=== PATIENT | female | born 1945 | race Two or more races ===

== ENCOUNTER 2025-05-30 19:13 | Inpatient (IN) | payer MEDICARE ==
[~2025-05-30] VITALS: Ht 162.6 cm; Wt 61.2 kg
[2025-05-30 21:31] LABS: PLATELET COUNT (AUTO) 232 K/uL (150-450); RED BLOOD CELL COUNT(AUTO) 3.97 MIL/uL (4.0-5.2); RED CELL DISTRIBUTION WIDTH 14.4 % (11.5-15.0); WHITE BLOOD COUNT (AUTO) 6.9 K/uL (4.3-11.0)
[2025-05-30] MEDS ORDERED: LORAZEPAM 0.5 MG TABLET ONE (21:40)
[2025-05-30 21:41] LABS: CALCIUM, SERUM 8.8 mg/dL (8.5-10.1); CREATININE 0.9 mg/dL (0.6-1.3); SODIUM SERUM 137 mmol/L (136-145); UREA NITROGEN, BLOOD 6 mg/dL (7-18)
[2025-05-30] MEDS: LORAZEPAM 1 MG TABLET PO ONE (21:41)
[2025-05-30 21:46] LABS: ASPARTATE AMINOTRANSFERASE 17 U/L (15-37); TOTAL PROTEIN, SERUM 7.1 g/dL (6.4-8.2)
[2025-05-30 23:49] LABS: APPEARANCE,URINE CLEAR (CLEAR); BLOOD, URINE NEGATIVE Ery/uL (NEGATIVE); LEUKOCYTE ESTERASE ,URINE 1+ (NEGATIVE); NITRITE, URINE NEGATIVE (NEGATIVE); UGLUCOSE NEGATIVE (NEGATIVE)
[2025-05-31 00:07] LABS: AMPHETAMINE, URINE NEGATIVE (NEGATIVE); BARBITURATE, URINE NEGATIVE (NEGATIVE); BENZODIAZEPINE, URINE NEGATIVE (NEGATIVE); CANNABINOID, URINE NEGATIVE (NEGATIVE); COCCAINE, URINE NEGATIVE (NEGATIVE); OPIATE, URINE NEGATIVE (NEGATIVE)
[2025-05-31 00:12] LABS: ADD URINE CULTURE YES; SQUAMOUS EPITHELIAL CELL,UR 0-2 /HPF (None Seen)
[2025-05-31] MEDS ORDERED: CARI1.5C PO (00:58)
[2025-05-31] MEDS ORDERED: VENL150C58 PO (00:58)
[2025-05-31] MEDS ORDERED: BUPR-54 PO (00:58)
[2025-05-31] MEDS ORDERED: LORA-259 PO (00:58)
[2025-05-31] MEDS ORDERED: CLON0.5T4 PO (00:58)
[2025-05-31] MEDS ORDERED: ASPI-1169 PO (00:58)
[2025-05-31] MEDS ORDERED: ATOR40TA PO (00:58)
[2025-05-31] MEDS ORDERED: TRAZ-182 PO (00:58)
[2025-05-31] MEDS ORDERED: CYAN100T44 PO (00:58)
[2025-05-31] MEDS: BLOOD SUGAR DIAGNOSTIC 1 EACH STRIP IN ONE (02:31)
[2025-05-31] MEDS: QUETIAPINE FUMARATE 25 MG TABLET PO PRN (03:07)
[2025-05-31 05:26] VITALS: BP 140/82; TEMP 97.5; O2SAT 96
[2025-05-31 08:00] VITALS: BP 131/68; TEMP 98; O2SAT 100
[2025-05-31] MEDS: ASPIRIN 81 MG TAB.CHEW PO SCH (08:24)
[2025-05-31] MEDS: CYANOCOBALAMIN 100 MCG TABLET PO SCH (08:24)
[2025-05-31 16:00] VITALS: BP 164/92; TEMP 98.6; O2SAT 95
[2025-05-31] MEDS: ATORVASTATIN 40 MG TABLET PO SCH (17:48)
[2025-05-31] MEDS: ZOLPIDEM TARTRATE 5 MG TABLET PO PRN (21:08)
[2025-06-01 07:53] LABS: CREATININE 0.9 mg/dL (0.6-1.3)
[2025-06-01 07:55] LABS: ASPARTATE AMINOTRANSFERASE 20.0 U/L (15-37); CALCIUM, SERUM 9.0 mg/dL (8.5-10.1); CREATININE 0.9 mg/dL (0.6-1.3); SODIUM SERUM 142.0 mmol/L (136-145); TOTAL PROTEIN, SERUM 7.0 g/dL (6.4-8.2); UREA NITROGEN, BLOOD 8.0 mg/dL (7-18)
[2025-06-01 07:56] LABS: LDL 42 mg/dL (0-99)
[2025-06-01 08:00] VITALS: BP 154/90; TEMP 97.8; O2SAT 97
[2025-06-01] MEDS: VENLAFAXINE XR 150 MG CAP.SR.24H PO SCH (08:16)
[2025-06-01 16:00] VITALS: BP 131/98; TEMP 97.9; O2SAT 96
[2025-06-01] MEDS: QUETIAPINE FUMARATE 25 MG TABLET PO SCH (21:33)
[2025-06-02 08:00] VITALS: BP 155/82; TEMP 98.1; O2SAT 98
[2025-06-02 16:00] VITALS: BP 157/74; TEMP 98.6; O2SAT 99
[2025-06-02 20:13] VITALS: BP 160/84; TEMP 98; O2SAT 99
[2025-06-03] MEDS ORDERED: ACETAMINOPHEN 650 MG/20.3 ML UDC NG PRN (06:00)
[2025-06-03] MEDS ORDERED: ACETAMINOPHEN 650 MG/20.3 ML UDC PO PRN (06:00)
[2025-06-03] MEDS: ACETAMINOPHEN 325 MG TABLET PO PRN (06:34)
[2025-06-03 07:44] VITALS: BP 165/79; TEMP 98.7; O2SAT 98
[2025-06-03] MEDS: AMLODIPINE BESYLATE 5 MG TABLET PO SCH (08:46)
[2025-06-03 13:18] VITALS: BP 144/75
[2025-06-03 15:44] VITALS: BP 163/86; TEMP 97.8; O2SAT 97
[2025-06-03 20:58] VITALS: BP 131/70; TEMP 98.4; O2SAT 98
[2025-06-03] MEDS: ZOLPIDEM TARTRATE 5 MG TABLET PO PRN (23:02)
[2025-06-04 07:42] VITALS: BP 160/96; TEMP 97.8; O2SAT 98
[2025-06-04 14:55] VITALS: BP 143/69; TEMP 98.1; O2SAT 97
[2025-06-04] MEDS: QUETIAPINE FUMARATE 25 MG TABLET PO PRN (15:59)
[2025-06-04 19:33] VITALS: BP 123/60; TEMP 98; O2SAT 97
[2025-06-04] MEDS: QUETIAPINE FUMARATE 25 MG TABLET PO SCH (20:42)
[2025-06-05 07:31] LABS: APPEARANCE,URINE CLEAR (CLEAR); BLOOD, URINE NEGATIVE Ery/uL (NEGATIVE); LEUKOCYTE ESTERASE ,URINE 1+ (NEGATIVE); NITRITE, URINE NEGATIVE (NEGATIVE); UGLUCOSE NEGATIVE (NEGATIVE)
[2025-06-05 07:32] LABS: ADD URINE CULTURE YES; SQUAMOUS EPITHELIAL CELL,UR Rare /HPF (None Seen)
[2025-06-05 08:00] VITALS: BP 156/79; TEMP 97.9; O2SAT 99
[2025-06-05] MEDS: QUETIAPINE FUMARATE 25 MG TABLET PO SCH (08:37)
[2025-06-05] MEDS ORDERED: PHENAZOPYRIDINE HCL 200 MG TABLET PO PRN (13:30)
[2025-06-05] MEDS: PHENAZOPYRIDINE HCL 200 MG TABLET PO SCH (14:20)
[2025-06-05 16:00] VITALS: BP 130/62; TEMP 97.7; O2SAT 96
[2025-06-05 20:22] VITALS: BP 140/68; TEMP 98; O2SAT 97
[2025-06-05] MEDS: SULFAMETH/TRIMETH 800/160 MG 1 UDTAB TABLET PO SCH (20:43)
[2025-06-06 07:51] VITALS: BP 150/70; TEMP 97.7; O2SAT 98
[2025-06-06 16:00] VITALS: BP 149/54; TEMP 97.7; O2SAT 98
[2025-06-06 19:53] VITALS: BP 154/96; TEMP 97.9; O2SAT 98
[2025-06-06] MEDS: QUETIAPINE FUMARATE 25 MG TABLET PO SCH (20:12)
[2025-06-07 08:00] VITALS: BP 157/85; TEMP 97.8; O2SAT 97
[2025-06-07] MEDS: MAG HYDROX/AL HYDROX/SIMETH 30 ML UDC PO PRN (15:38)
[2025-06-07 16:00] VITALS: BP 131/59; TEMP 98.2; O2SAT 95
[2025-06-07 20:00] VITALS: BP 131/92; TEMP 97.7; O2SAT 96
[2025-06-08 08:00] VITALS: BP 149/84; TEMP 97.8; O2SAT 96
[2025-06-08 15:59] VITALS: BP 129/63; TEMP 97.7; O2SAT 95
[2025-06-08] MEDS: MAGNESIUM HYDROXIDE 30 ML UDC PO PRN (19:42)
[2025-06-08 20:42] VITALS: BP 131/66; TEMP 97.7; O2SAT 98
[2025-06-09 08:07] VITALS: BP 136/68; TEMP 97.9; O2SAT 97
[2025-06-09 20:26] VITALS: BP 122/62; TEMP 98.6; O2SAT 97
[2025-06-10 08:08] VITALS: BP 169/68; TEMP 98.2; O2SAT 97
[2025-06-10 15:15] VITALS: BP 118/59; TEMP 99; O2SAT 97
[2025-06-10 20:33] VITALS: BP 119/75; TEMP 98.2; O2SAT 98
[2025-06-11 07:51] VITALS: BP 142/82; TEMP 97.7; O2SAT 96
[2025-06-11 08:25] VITALS: BP 141/82
== END 2025-06-11 14:55 | DRG 885 ==
LOC: ER 19:17 → GPS 05-31 01:07
PROVIDERS: ADMIT Psychiatry & Neurology Psychiatry; ATTEND Nurse Practitioner Family
DX: F39 Unspecified mood [affective] disorder (principal); F33.9 Major depressive disorder, recurrent, unspecified; R45.851 Suicidal ideations; N39.0 Urinary tract infection, site not specified; E78.5 Hyperlipidemia, unspecified; F41.9 Anxiety disorder, unspecified; I25.10 Atherosclerotic heart disease of native coronary artery without angina pectoris; Z86.711 Personal history of pulmonary embolism; Z86.718 Personal history of other venous thrombosis and embolism; K58.9 Irritable bowel syndrome, unspecified; Z87.891 Personal history of nicotine dependence; Z20.822 Contact with and (suspected) exposure to COVID-19; Z88.6 Allergy status to analgesic agent; Z90.710 Acquired absence of both cervix and uterus; Z73.6 Limitation of activities due to disability; F31.30 Bipolar disorder, current episode depressed, mild or moderate severity, unspecified; F29 Unspecified psychosis not due to a substance or known physiological condition
CPT/HCPCS: 36415; 80048-TC; 80053-TC; 80061-TC; 80076-TC; 81001; 82565-TC; 82962-TC; 84439-TC; 84443-TC; 85025-TC; 87086-TC